=== PATIENT | female | born 1990 | race Hispanic/Latino ===

== ENCOUNTER 2020-06-21 09:42 | Inpatient (IN) | payer MEDICAID, OTHER, SELFPAY ==
[2020-06-21 10:16] VITALS: BMI 41.8
[2020-06-21] MEDS ORDERED: FLU VACC QS2020-21(6MOS UP)/PF 60 MCG/0.5 ML SYRINGE IM ONE (10:30)
[2020-06-21] MEDS ORDERED: Promethazine HCl 25 MG/ML VIAL IM PRN (11:48)
[2020-06-21] MEDS ORDERED: Ondansetron PF 4 MG/2 ML Vial IVP PRN ×2 (11:48→16:21)
[2020-06-21] MEDS ORDERED: Carboprost 250 MCG/ML AMP IM PRN (11:48)
[2020-06-21] MEDS ORDERED: Acetaminophen 500 MG TAB PO PRN (11:48)
[2020-06-21] MEDS ORDERED: Methylergonovine 0.2 MG/ML VIAL IM PRN (11:48)
[2020-06-21] MEDS ORDERED: Lidocaine 1% (PF) 30 ML VIAL SC PRN (11:48)
[2020-06-21] MEDS ORDERED: NS / Oxytocin 40 units/1000ml 1,000 ML IV PRN (11:48)
[2020-06-21] MEDS ORDERED: hydrALAZINE 20 MG/ML VIAL SLOW IVP PRN ×2 (11:48→16:21)
--- NOTE | 2020-06-21 11:52 | PDOC.FPROB ---
FMR OB H&P: HPI - History of Present Illness Chief Complaint: SROM History of Present Illness: Patient is a 29 year old at 38.2wk by 9.6wk wilfred who presents to L&D due to SROM of clear fluid at 0315 this am. The patient reports contractions starting afterward that have increased in intensity and frequency. The patient is currently feeling contractions every 5 min but is able to breath through them. +FM. No vaginal bleeding or vaginal discharge. Denies headache, vision changes, CP, SOB, nausea, abdominal pain and edema. Primary Care Physician: SHANON Winkler FMR OB H&P: Current - Care : 3 Para: 2001 Gestational age: 38.2wk by 9.6wk wilfred Due date: 07/02/20 - OB Labs Blood type: O RH: positive Antibody Screen: negative HIV: negative RPR: negative HepBsAg: negative Rubella: immune Quad screen: negative Gonorrhea: negative Chlamydia: negative Pap Smear: NILM 12/12 A1c: 5.5 GBS: negative H&H: Additional labs: 2 hour gtt 101/193/118 FMR OB H&P: History - Past Medical History PMH: Obesity, MDD on sertraline - OB History OB History: 2 previous on 07/07 and 03/02 without complications. Both at 39wk. 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 Menarache at 11wk. Regular menstruation [id number], lasting 4 days. - Surgical History Sx History: None - Social History Social History: Denies tobacco, ETOH and drug use - Family History Family History: FHx of DM FMR OB H&P: Medications - Current Home Medications: Medication Instructions Recorded Confirmed Type #57/Iron/FA/DSS/DHA 1 cap PO DAILY 07/22/13 06/21/20 History [Tl-Select DHA Softgel] Allergies/Adverse Reactions: Allergies Allergy/AdvReac Type Severity Reaction Status Date / Time No Known Allergies Allergy Verified 06/21/20 10:08 FMR OB H&P: ROS - Review of Systems General: denies: fever/chills, fatigue Eyes: denies: vision changes, double vision, floaters ENT: denies: nasal congestion, rhinorrhea Cardiovascular: denies: chest pain, palpitation, edema Respiratory: denies: cough, shortness of breath Gastrointestinal: denies: abdominal pain, nausea Genitourinary (Female): denies: dysuria, vaginal discharge, vaginal bleeding Musculoskeletal: denies: pain Neurologic: denies: weakness, headache Hematologic/Lymphatic: denies: prolonged or excessive bleeding Psychological: denies: depression, anxiety FMR OB H&P: Vital Signs - Maternal Vital signs: Vital Signs - First Documented Temp Pulse Resp BP 99.0 F 107 H 18 110/61 06/21/20 09:57 06/21/20 09:57 06/21/20 09:57 06/21/20 09:57 - Heart Tones Baseline: 150 Variability: moderate Acceleration: present Deceleration: absent Category: category 1 [place] contractions every: 3-5min FMR OB H&P: Physical Exam - Physical Exam General: NAD, awake, alert and oriented HEENT: normocephalic and atraumatic Neck: trachea midline Heart: RRR General: CTAB, no respiratory distress Abdomen: gravid Musculoskeletal: no misalignment/asymmetry Neurological: no focal deficit Psychiatric: normal mood and affect FMR OB H&P: A/P Disposition: 29 year old at 38.2wk by 9.6wk sono who presents to L&D for SROM Ellis IUP GBS negative. Maternal labs negative. -Does not desire epidural -Most recent [place] on 05/01 was 31.7% 1025 490/-1 1200 strip reviewed, cat 1, cxr 3-5 min A1GDM A1C 5.5. -Controlled with diet -Routine BG check MDD -Well controlled on sertraline Obesity -Aware Hx of cervical dysplasia -Co-testing in 1 year PCP: SHANON Winkler Dispo: Admit to L&D for labor. Will recheck at 1230. Plan to start pit if no change. Discussion: Date/Time: 06/21/20 1152 This H&P was discussed with Dr. Sandoval and Dr. Blunt who agree with the above documentation and plan. Addendum - Attending - Attending Attestation Date/Time: 06/21/20 1406 I personally evaluated the patient and discussed the management with Dr. Contreras. I agree with the History, Examination, Assessment and Plan documented above.
[2020-06-21] MEDS ORDERED: Lactated Ringer's 1,000 ML IV SCH (12:00)
[2020-06-21] MEDS ORDERED: Ibuprofen 800 MG TAB PO PRN (12:23)
[2020-06-21] MEDS ORDERED: Misoprostol 200 MCG TAB PR PRN (12:23)
[2020-06-21] MEDS ORDERED: NS w/ Oxytocin 10 units 500 ML IV SCH (12:30)
[2020-06-21 12:43] LABS: Hemoglobin 15.1 g/dL (12.0-16.0); Mean Corpuscular HGB CONC 32.1 g/dL (32.0-36.0); Mean Corpuscular Hemoglobin 28.6 pg (27.0-31.0); Mean Corpuscular Volume 89.2 fL (78.0-98.0); Mean Platelet Volume 8.5 fL (7.4-10.4); Platelet Count 118 thou/uL (130-400); RBC Distribution Width 13.3 % (11.5-14.5); Red Blood Cell (RBC) Count 5.26 mill/uL (4.20-5.40); White Blood Cell (WBC) Count 8.1 thou/uL (4.8-10.8)
[2020-06-21 13:18] LABS: HBSAg Index 0.21 S/CO (0-0.99); Hep B Surf Ag Non-Reactive S/CO (NonReactive); Syphilis Antibody Nonreactive (Nonreactive); Syphilis Antibody Index 0.04 S/CO (<1.00 Non-Reactive)
--- NOTE | 2020-06-21 13:18 | PDOC.LDPN ---
Labor & Delivery Progress Note - Subjective Subjective: comfortable - Objective Vital signs reviewed and normal: yes General: NAD Uterine fundus: non tender Dilation: 5 Effacement: 90% Station: -1 FHT: category 1 (+ accels, no decels, moderate varibility ) Plan: continue plan of care, pitocin for augmentation -: 29 year old at 38.2wk by 9.6wk sono admitted to L&D for labor Ellis IUP GBS negative. Maternal labs negative. -Does not desire epidural -Most recent [place] on 05/01 was 31.7% 0315 SROM at home 1025 4/90/-1 1230 5/90/-1, cat 1 strip A1GDM A1C 5.5. -Controlled with diet -Routine BG check MDD -Well controlled on sertraline Obesity -Aware Hx of cervical dysplasia -Co-testing in 1 year PCP: SHANON Winkler Dispo: Start pit titration for labor augmentation. Recheck at 1430 Addendum - Attending - Attending Attestation Date/Time: 06/21/20 1407 I personally evaluated the patient and discussed the management with Dr. Contreras. I agree with the History, Examination, Assessment and Plan documented above.
--- NOTE | 2020-06-21 14:43 | PDOC.LDPN ---
Labor & Delivery Progress Note - Subjective Subjective: comfortable - Objective Vital signs reviewed and normal: yes General: NAD Uterine fundus: non tender Dilation: 6 Effacement: 90% Station: 0 FHT: category 2 (1 late decel present, + accels, moderate variability) [place] contractions every: 5min Plan: continue plan of care -: 29 year old at 38.2wk by 9.6wk sono admitted to L&D for labor Ellis IUP GBS negative. Maternal labs negative. -Does not desire epidural -Most recent [place] on 05/01 was 31.7% 0315 SROM at home 1025 4/90/-1 1230 5/90/-1, cat 1 strip, pit started 1430 6/90/0, cat 1 strip due to late decel, pit @ 8 A1GDM A1C 5.5. -Controlled with diet -Routine BG check MDD -Well controlled on sertraline Obesity -Aware Hx of cervical dysplasia -Co-testing in 1 year PCP: SHANON Winkler Dispo: Continue pit titration for labor augmentation. Recheck at 1630 Addendum - Attending - Attending Attestation Date/Time: 06/21/20 1501 I personally evaluated the patient and discussed the management with Dr. Contreras I agree with the History, Examination, Assessment and Plan documented above.
[2020-06-21 16:01] LABS: SARS-CoV-2 MS2 Positive; SARS-CoV-2 N Gene Negative; SARS-CoV-2 S Gene Negative; SARS-CoV-2 by NAA Not Detected (NotDetected); SARS-CoV-2 orf1ab Negative
[2020-06-21] MEDS ORDERED: Lanolin Ointment 7 GM TUBE TOP PRN (16:21)
[2020-06-21] MEDS ORDERED: diphenhydrAMINE 25 MG CAP PO PRN (16:21)
[2020-06-21] MEDS ORDERED: Bisacodyl 10 MG SUPP PR PRN (16:21)
[2020-06-21] MEDS ORDERED: Benzocaine-Menthol 82.5 ML CAN TOP PRN (16:21)
[2020-06-21] MEDS ORDERED: Milk Of Magnesia 30 ML UDCUP PO PRN (16:21)
[2020-06-21] MEDS ORDERED: Preparation H Ointment 28 GM TUBE PR PRN (16:21)
[2020-06-21] MEDS ORDERED: NS / Oxytocin 40 units/1000ml 1,000 ML IV SCH (16:30)
--- NOTE | 2020-06-21 16:47 | PDOC.OPDEL ---
OB Operative/Delivery Note - Additional Findings/Plan Compilations/Other Findings: Vaginal Delivery note Delivering Physician: Drs. Zhu/Ben/Lori Attending Procedure: Dr. Blunt Spontaneous Vaginal Delivery Anesthesia: epidural, Local for Repair QBL: 475 ml Pre-op Diagnosis: 1. Term intrauterine in labor 2. A1GDM 3. Obesity 4. MDD Post-op Diagnosis: 1. Term intrauterine , delivered 2. same as above Indications: A 29 y/o female presents in active labor Delivery Note: This is 29 yo F @ 38.2 wks who delivered a viable F infant at 1545 on 06/21/20. Following an uneventful antepartum course, a vigorous female was delivered over an intact perineum in the occipitoanterior position. Anterior Shoulder and then remainder of the body delivered. No nuchal cord. The head was held down and mouth and nares were bulb suctioned. Cord clamped and cut and cord blood collected. Placenta delivered Ramos with tailing membranes intact with a 3 vessel cord noted. Fundal massage was performed and the fundus was firm. The cervix and vagina were inspected. 2nd degree laceration noted and repaired with 2-0 Chromic in the usual fashion with good approximation and hemostasis after a local anesthetic lidocaine 1% was injected at site. Infant went to nursery in good condition for routine care. Apgars were 9/9 at 1 & 5 minutes, respectively. Patient tolerated delivery well and went to after routine recovery/care. Addendum - Attending - Attending Attestation Date/Time: 06/21/20 6042 I was present to attend this delivery with Resident staff. I agree with the History, Examination, Assessment and Plan.
[2020-06-21] MEDS: Misoprostol 100 MCG TAB PO SCH (17:50)
[2020-06-21] MEDS: Ibuprofen 800 MG TAB PO SCH (20:40)
[2020-06-21] MEDS: Docusate Calcium (SURFAK) 240 MG CAP PO SCH (20:40)
[2020-06-22] MEDS: Ibuprofen 800 MG TAB PO SCH ×2 (04:57→15:30)
--- NOTE | 2020-06-22 06:24 | PDOC.PP ---
Post Progress Note Post Day #: 1 Subjective: Mom doing well. Bleeding consistent with her normal periods. Pain controlled. Tolerated diet well but hasn't walked yet. Would like to start supplementing her baby with formula. Doing well otherwise. PO intake tolerated: yes Flatus: yes Ambulation: no Vital Signs (12 hours) Temp Pulse Resp BP Pulse Ox 06/21/20 23:43 99.0 F 80 17 102/45 L 98 06/21/20 20:00 99.2 F 80 18 108/52 L 98 06/21/20 18:49 99.6 F 81 20 119/67 Weight Weight 103.873 kg - Physical Examination General: NAD Cardiovascular: RRR Respiratory: clear to auscultation bilaterally, non-labored breathing Abdominal: + bowel sounds, lochia, no distention, appropriately TTP Fundus firm & at: below umbilicus Neurological: no gross focal deficits Psychiatric: A&Ox3, normal affect Result Diagrams: 06/21/20 12:15 Additional Labs: Post Labs Hep Bs Antigen Non-Reactive S/CO (NonReactive) 06/21/20 12:15 Blood Type O POSITIVE 06/21/20 12:15 - Assessment/Plan 29 year old s/p precipitous delivery via with 2nd degree lac repaired s/p , PPD 1 GBS negative. Maternal labs negative. Doing well, continue routine PP care A1GDM -s/p delivery -will need 6 week 2hr GTT-discussed with mom MDD -Well controlled on sertraline Obesity -Aware Hx of cervical dysplasia -Co-testing in 1 year PCP: SHANON Winkler Dispo: Home today pending baby bilirubin
[2020-06-22] MEDS ORDERED: Prenatal Vitamin 1 TAB PO SCH (09:00)
[2020-06-22] MEDS ORDERED: Adacel (T-DAP) 0.5 ML SYRINGE IM ONE (09:00)
[2020-06-22] MEDS: Docusate Calcium (SURFAK) 240 MG CAP PO SCH (09:06)
[2020-06-22 13:03] VITALS: BP 102/51; TEMP 98.5
[2020-06-22] MEDS: Misoprostol 100 MCG TAB PO SCH (15:35)
== END 2020-06-22 18:05 | disposition home or self-care (01) | DRG 807 ==
LOC: L&D/OP 09:42 → L&D 10:57 → 3SW 18:12
PROVIDERS: ADMIT Obstetrics & Gynecology; ATTEND Obstetrics & Gynecology
PROC: 10E0XZZ Delivery of Products of Conception, External Approach (ICD-10-PCS; principal; 2020-06-21)
PROC: 0KQM0ZZ Repair Perineum Muscle, Open Approach (ICD-10-PCS; 2020-06-21)
DX: O24.420 Gestational diabetes mellitus in childbirth, diet controlled (principal); Z37.0 Single live birth; Z20.828 Contact with and (suspected) exposure to other viral communicable diseases; O70.1 Second degree perineal laceration during delivery; O99.344 Other mental disorders complicating childbirth; F32.9 Major depressive disorder, single episode, unspecified; O99.214 Obesity complicating childbirth; O99.892 Other specified diseases and conditions complicating childbirth; N87.9 Dysplasia of cervix uteri, unspecified; Z3A.38 38 weeks gestation of pregnancy
CPT/HCPCS: 85027; 86780; 86850; 86900; 86901; 87340; 87635; 99285; J2001; J2210; J2590; J3490; U0003